=== PATIENT | male | born 1965 | race Caucasian/White ===

== ENCOUNTER → 2020-01-10 | Outpatient (CLI) | payer BC ==
--- NOTE | 2020-01-10 11:48 | US ---
EXAMINATION TYPE: US liver DATE OF EXAM: 01/10/2020 COMPARISON: NONE CLINICAL HISTORY: R94.5 abnormal liver function labs. elevated liver enzymes EXAM MEASUREMENTS: Liver Length: 17.6 cm, possibly under represented Gallbladder Wall: 0.5 cm CBD: 0.3 cm Right Kidney: 11.9 x 6.6 x 5.2 cm *Technical limitations due to large amount of overlying bowel content Pancreas: Obscured by bowel gas Liver: enlarged, attenuating, unable to penetrate Gallbladder: upper limits of normal in size Evidence for sonographic Slater's sign: no CBD: limited evaluation Right Kidney: no evidence of hydronephrosis IMPRESSION: Exam somewhat limited. Correlate for hepatic steatosis, hepatocellular disease. Suspect l iver may be enlarged.
== END | disposition home or self-care (01) ==
LOC: RADUSWWP 07:38
PROVIDERS: ATTEND Internal Medicine
DX: R94.5 Abnormal results of liver function studies (principal)
CPT/HCPCS: 76705